=== PATIENT | female | born 1985 | race Caucasian/White ===

== ENCOUNTER → 2016-10-01 08:01 | Outpatient (CLI) | payer BC ==
[2015-08-11 05:41] VITALS: BMI 30.2
== END | disposition home or self-care (01) ==
LOC: D.MRI 08:01
DX: M25.562 Pain in left knee (principal)

== ENCOUNTER → 2018-09-28 12:02 | Outpatient (CLI) | payer BC ==
[2015-08-11 05:41] VITALS: BMI 30.2
[2018-09-28 13:00] LABS: ALBUMIN 3.7 g/dL (3.4-5.0); BILIRUBIN - DIRECT 0.1 mg/dL (0.00-0.30); BILIRUBIN - INDIRECT 0.27 mg/dL (0.00-1.00); BILIRUBIN - TOTAL 0.37 mg/dL (0.2-1.3); PROTEIN - SERUM 7.2 g/dL (6.4-8.2)
[2018-09-30 14:11] LABS: CYTOMEGALOVIRUS AB IGG >10.00 U/mL (0.00-0.59); EBV - EARLY ANTIGEN AB IGG <9.0 U/mL (0.0-8.9); EBV - NUCLEAR ANTIGEN AB IGG >600.0 U/mL (0.0-17.9); EBV VIRAL CAPSID AB IGG >600.0 U/mL (0.0-17.9); EBV VIRAL CAPSID AB IGM <36.0 U/mL (0.0-35.9)
[2018-09-30 21:06] LABS: HEPATITIS C ANTIBODY 0.1 S/CO RAT (0.0-0.9)
== END | disposition home or self-care (01) ==
LOC: D.LAB 12:02
PROVIDERS: ATTEND Internal Medicine Gastroenterology
DX: R50.9 Fever, unspecified (principal); R53.83 Other fatigue; R94.5 Abnormal results of liver function studies; R53.81 Other malaise